=== PATIENT | male | born 1965 | race Caucasian/White ===

== ENCOUNTER 2017-04-03 10:06 | Emergency (ER) | payer OTHER ==
[2017-04-03 10:58] LABS: HEMOGLOBIN 13.1 gm/dl (14.0-17.5); RED BLOOD COUNT 4.48 M/UL (4.20-5.50); WHITE BLOOD COUNT 12.3 K/UL (4.5-11.0)
[2017-04-03 11:23] LABS: BUN/CREATININE RATIO 17 (0-10)
== END 2017-04-03 13:00 | disposition home or self-care (01) ==
LOC: ER1 10:06
PROVIDERS: Nurse Practitioner Family
DX: J40 Bronchitis, not specified as acute or chronic (principal); F17.210 Nicotine dependence, cigarettes, uncomplicated
CPT/HCPCS: 71020; 80053; 81001; 83605; 83880; 85025; 85379; 87040; 87086; J7030

== ENCOUNTER 2021-01-10 16:22 | Inpatient (IN) | payer OTHER ==
[~2021-01-10] VITALS: Ht 180.3 cm; Wt 65.8 kg
[2021-01-10 17:22] LABS: HEMOGLOBIN 12.8 gm/dl (14.0-17.5); RED BLOOD COUNT 4.41 M/UL (4.20-5.50); WHITE BLOOD COUNT 6.6 K/UL (4.5-11.0)
[2021-01-10 17:33] LABS: BUN/CREATININE RATIO 15 (0-10)
[2021-01-13 03:45] LABS: HEMOGLOBIN 13.6 gm/dl (14.0-17.5); RED BLOOD COUNT 4.66 M/UL (4.20-5.50); WHITE BLOOD COUNT 6.3 K/UL (4.5-11.0)
[2021-01-13 04:16] LABS: BUN/CREATININE RATIO 13 (0-10)
[2021-01-13 20:05] LABS: HEMOGLOBIN 13.7 gm/dl (14.0-17.5); RED BLOOD COUNT 4.7 M/UL (4.20-5.50)
[2021-01-13 20:19] LABS: BUN/CREATININE RATIO 13 (0-10)
[2021-01-13 20:21] LABS: WHITE BLOOD COUNT 8.9 K/UL (4.5-11.0)
[2021-01-14 02:57] LABS: HEMOGLOBIN 13.1 gm/dl (14.0-17.5); RED BLOOD COUNT 4.56 M/UL (4.20-5.50); WHITE BLOOD COUNT 7.3 K/UL (4.5-11.0)
[2021-01-14 03:18] LABS: BUN/CREATININE RATIO 15 (0-10)
[2021-01-14] MEDS ORDERED: ATORVASTATIN CA20 MG PO (11:31)
[2021-01-14] MEDS ORDERED: ASPIRIN EC81 MG PO (11:31)
[2021-01-14] MEDS ORDERED: NITROGLYCERIN0.4 MG SL (11:31)
[2021-01-14] MEDS ORDERED: BRILINTA 90 MG90 MG PO (11:31)
[2021-01-14] MEDS ORDERED: LOPRESSOR 25 MG25 MG PO (11:31)
== END 2021-01-14 15:51 | disposition home or self-care (01) | DRG 247 ==
LOC: ER1 16:22 → M/S 18:01 → CDU 18:01 → M/S 20:00 → PROG CARE 01-12 12:35 → M/S 01-12 12:35 → PROG CARE 01-13 13:21
PROVIDERS: Emergency Medicine; Internal Medicine; Internal Medicine Interventional Cardiology; ADMIT Internal Medicine
PROC: B24BZZ4 Ultrasonography of Heart with Aorta, Transesophageal (ICD-10-PCS; 2021-01-12)
PROC: 4A023N7 Measurement of Cardiac Sampling and Pressure, Left Heart, Percutaneous Approach (ICD-10-PCS; principal; 2021-01-13)
PROC: 027035Z Dilation of Coronary Artery, One Artery with Two Drug-eluting Intraluminal Devices, Percutaneous Approach (ICD-10-PCS; 2021-01-13)
PROC: B211YZZ Fluoroscopy of Multiple Coronary Arteries using Other Contrast (ICD-10-PCS; 2021-01-13)
DX: I25.110 Atherosclerotic heart disease of native coronary artery with unstable angina pectoris (principal); E78.5 Hyperlipidemia, unspecified; F17.210 Nicotine dependence, cigarettes, uncomplicated; Z20.822 Contact with and (suspected) exposure to COVID-19; I25.5 Ischemic cardiomyopathy; Z79.82 Long term (current) use of aspirin; Z79.899 Other long term (current) drug therapy; Z90.49 Acquired absence of other specified parts of digestive tract
CPT/HCPCS: 36415; 71045; 78452; 80048; 80053; 82550; 82553; 83874; 84484; 85025; 85027; 85347; 93005; 93017; 96372; 99152; 99153; 99285; A9502; C1725; C1769; C1874; C1887; C9600; G0378; J0461; J1644; J1650; J2250; J2785; J3010; J3246; J7030; J7040; Q9967; U0002

== ENCOUNTER 2021-02-19 13:31 | Emergency (ER) | payer OTHER ==
[~2021-02-19 13:31] MED LIST: ASPIRIN EC81 MG PO; ATORVASTATIN CA20 MG PO; BRILINTA 90 MG90 MG PO; LOPRESSOR 25 MG25 MG PO; NITROGLYCERIN0.4 MG SL
== END 2021-02-19 15:51 | disposition home or self-care (01) ==
LOC: ER1 13:31
DX: S61.011A Laceration without foreign body of right thumb without damage to nail, initial encounter (principal); W26.8XXA Contact with other sharp object(s), not elsewhere classified, initial encounter; Z23 Encounter for immunization
CPT/HCPCS: 12002; 73130; 90471; 90715; 99283

== ENCOUNTER 2021-05-02 10:32 | Emergency (ER) | payer OTHER ==
[2021-05-02] MEDS ORDERED: HYDROCODON-ACE1 EAC4 PO (12:27)
== END 2021-05-02 12:11 | disposition home or self-care (01) ==
LOC: ER1 10:32
DX: S62.604A Fracture of unspecified phalanx of right ring finger, initial encounter for closed fracture (principal); F17.210 Nicotine dependence, cigarettes, uncomplicated; W22.8XXA Striking against or struck by other objects, initial encounter; Y92.009 Unspecified place in unspecified non-institutional (private) residence as the place of occurrence of the external cause
CPT/HCPCS: 29125; 73130; 99283

== ENCOUNTER 2021-11-15 08:23 | Emergency (ER) | payer OTHER ==
[~2021-11-15 08:23] MED LIST changes: +HYDROCODON-ACE1 EAC4 PO
[2021-11-15 09:42] LABS: HEMOGLOBIN 12.7 gm/dl (14.0-17.5); RED BLOOD COUNT 4.48 M/UL (4.20-5.50); WHITE BLOOD COUNT 7.7 K/UL (4.5-11.0)
[2021-11-15 10:10] LABS: BUN/CREATININE RATIO 18 (0-10)
[2021-11-15] MEDS ORDERED: BENTYL 20MG TAB20 MG PO (12:13)
[2021-11-15] MEDS ORDERED: ZOFRAN 4 MG TAB4 MG PO (12:13)
== END 2021-11-15 12:30 | disposition home or self-care (01) ==
LOC: ER1 08:23
PROVIDERS: Physician Assistant
DX: R10.9 Unspecified abdominal pain (principal); R11.2 Nausea with vomiting, unspecified; R19.7 Diarrhea, unspecified; E78.5 Hyperlipidemia, unspecified; I51.9 Heart disease, unspecified; F17.200 Nicotine dependence, unspecified, uncomplicated
CPT/HCPCS: 80053; 81001; 83690; 85025; 96374; 99284; J2405; Q9967

== ENCOUNTER 2022-02-01 09:02 | Emergency (ER) | payer OTHER ==
[~2022-02-01 09:02] MED LIST changes: +BENTYL 20MG TAB20 MG PO; +ZOFRAN 4 MG TAB4 MG PO
[2022-02-01 09:47] LABS: HEMOGLOBIN 12.8 gm/dl (14.0-17.5); RED BLOOD COUNT 4.4 M/UL (4.20-5.50); WHITE BLOOD COUNT 9.7 K/UL (4.5-11.0)
[2022-02-01 10:22] LABS: BUN/CREATININE RATIO 17 (0-10)
[2022-02-01] MEDS ORDERED: ISOSORBIDE MONO60 MG PO (13:03)
== END 2022-02-01 13:10 | disposition home or self-care (01) ==
LOC: ER1 09:02
PROVIDERS: Physician Assistant
DX: R07.89 Other chest pain (principal); E78.5 Hyperlipidemia, unspecified; F17.210 Nicotine dependence, cigarettes, uncomplicated; Z95.5 Presence of coronary angioplasty implant and graft; Z90.49 Acquired absence of other specified parts of digestive tract
CPT/HCPCS: 71045; 80053; 82550; 82553; 84484; 85025; 85379; 93005; 99285; Q9967